=== PATIENT | female | born 1960 | race Hispanic/Latino ===

== ENCOUNTER 2018-04-04 19:16 | Emergency (ER) | payer MEDICARE ==
[~2018-04-04] VITALS: Ht 162.6 cm; Wt 86.2 kg
== END 2018-04-04 20:42 | disposition home or self-care (01) ==
LOC: ER 19:16
DX: S61.411A Laceration without foreign body of right hand, initial encounter (principal); W45.0XXA Nail entering through skin, initial encounter; Y92.019 Unspecified place in single-family (private) house as the place of occurrence of the external cause; E11.9 Type 2 diabetes mellitus without complications; N80.9 Endometriosis, unspecified; Z83.3 Family history of diabetes mellitus; Z82.49 Family history of ischemic heart disease and other diseases of the circulatory system
CPT/HCPCS: 99282

== ENCOUNTER 2022-02-05 13:43 | Emergency (ER) | payer MEDICARE, OTHER ==
[~2022-02-05] VITALS: Ht 162.6 cm; Wt 59.4 kg
[2022-02-05 16:38] VITALS: BP 139/73
== END 2022-02-05 16:39 | disposition home or self-care (01) ==
LOC: ER 14:47
DX: S61.217A Laceration without foreign body of left little finger without damage to nail, initial encounter (principal); W26.8XXA Contact with other sharp object(s), not elsewhere classified, initial encounter; Y92.89 Other specified places as the place of occurrence of the external cause
CPT/HCPCS: 99283